=== PATIENT | female | born 1990 | race Two or more races ===

== ENCOUNTER 2021-04-02 15:05 | Emergency (ER) | payer OTHER ==
[~2021-04-02] VITALS: Ht 160 cm; Wt 55.3 kg
[~2021-04-02 15:05] MED LIST: FOLIC ACID0.8 MG PO; PRENATAL1 TAB PO
[2021-04-02] MEDS ORDERED: PEPCID AC20 MG PO (21:24)
[2021-04-02] MEDS ORDERED: CIPRO500 MG PO (21:24)
[2021-04-02] MEDS ORDERED: PROBIOTIC1 EAC2 PO (21:24)
== END 2021-04-02 21:34 | disposition home or self-care (01) ==
LOC: ER 15:05
DX: R19.7 Diarrhea, unspecified (principal); R11.10 Vomiting, unspecified; Z03.818 Encounter for observation for suspected exposure to other biological agents ruled out
CPT/HCPCS: 74177; Q9965

== ENCOUNTER 2021-10-10 11:56 | Emergency (ER) | payer OTHER ==
[~2021-10-10] VITALS: Ht 160 cm; Wt 58.5 kg
[~2021-10-10 11:56] MED LIST changes: +CIPRO500 MG PO; +PEPCID AC20 MG PO; +PROBIOTIC1 EAC2 PO
== END 2021-10-10 16:10 | disposition home or self-care (01) ==
LOC: ER 11:56
DX: N93.9 Abnormal uterine and vaginal bleeding, unspecified (principal)

== ENCOUNTER 2021-10-26 12:03 | Outpatient (CLI) | payer OTHER | END 2021-10-26 13:10 | disposition home or self-care (01) | LOC: PRENATAL 12:03 | PROVIDERS: ATTEND Obstetrics & Gynecology Maternal & Fetal Medicine | DX: O36.80X0 Pregnancy with inconclusive fetal viability, not applicable or unspecified (principal); O30.90 Multiple gestation, unspecified, unspecified trimester; O34.219 Maternal care for unspecified type scar from previous cesarean delivery ==

== ENCOUNTER 2021-12-01 08:27 | Outpatient (CLI) | payer OTHER | END 2021-12-01 09:46 | disposition home or self-care (01) | LOC: PRENATAL 08:27 | PROVIDERS: ATTEND Obstetrics & Gynecology Maternal & Fetal Medicine | DX: O36.80X0 Pregnancy with inconclusive fetal viability, not applicable or unspecified (principal); O34.219 Maternal care for unspecified type scar from previous cesarean delivery; Z3A.13 13 weeks gestation of pregnancy ==

== ENCOUNTER 2022-01-19 08:00 | Outpatient (CLI) | payer OTHER | END 2022-01-19 09:03 | disposition home or self-care (01) | LOC: PRENATAL 08:00 | PROVIDERS: ATTEND Obstetrics & Gynecology Maternal & Fetal Medicine | DX: O35.0XX0 Maternal care for (suspected) central nervous system malformation in fetus, not applicable or unspecified (principal); O35.3XX0 Maternal care for (suspected) damage to fetus from viral disease in mother, not applicable or unspecified; O34.219 Maternal care for unspecified type scar from previous cesarean delivery; Z3A.20 20 weeks gestation of pregnancy ==

== ENCOUNTER 2022-04-13 09:35 | Outpatient (CLI) | payer OTHER | END 2022-04-13 11:15 | disposition home or self-care (01) | LOC: PRENATAL 09:35 | PROVIDERS: ATTEND Obstetrics & Gynecology Maternal & Fetal Medicine | DX: O26.849 Uterine size-date discrepancy, unspecified trimester (principal); O35.0XX0 Maternal care for (suspected) central nervous system malformation in fetus, not applicable or unspecified; O34.219 Maternal care for unspecified type scar from previous cesarean delivery; O43.90 Unspecified placental disorder, unspecified trimester; Z3A.32 32 weeks gestation of pregnancy ==

== ENCOUNTER 2022-05-10 21:53 | Outpatient (CLI) | payer OTHER ==
[2022-05-10] MEDS ORDERED: PRENATAL TABLE1 EAC1 PO (22:24)
== END 2022-05-11 10:52 | disposition home or self-care (01) ==
LOC: OBS/DEL 21:53
PROVIDERS: ATTEND Specialist
DX: O47.03 False labor before 37 completed weeks of gestation, third trimester (principal); Z3A.36 36 weeks gestation of pregnancy; O34.219 Maternal care for unspecified type scar from previous cesarean delivery

== ENCOUNTER 2022-05-25 10:00 | Inpatient (IN) | payer OTHER ==
[~2022-05-25] VITALS: Ht 162.6 cm; Wt 3.2 kg
[~2022-05-25 10:00] MED LIST changes: +PRENATAL TABLE1 EAC1 PO
[2022-05-28] MEDS ORDERED: IBUPROFEN800 MG PO (07:23)
== END 2022-05-28 15:27 | disposition home or self-care (01) | DRG 819 ==
LOC: OB/GYN 11:10 → LDR 11:10 → O/R 13:13 → OB/GYN 15:52
PROVIDERS: ADMIT Specialist; ATTEND Specialist
PROC: 0UB70ZZ Excision of Bilateral Fallopian Tubes, Open Approach (ICD-10-PCS; 2022-05-25)
PROC: 4A1HXCZ Monitoring of Products of Conception, Cardiac Rate, External Approach (ICD-10-PCS; 2022-05-25)
PROC: 4A1HXCZ Monitoring of Products of Conception, Cardiac Rate, External Approach (ICD-10-PCS; principal; 2022-05-25 12:15)
DX: O34.211 Maternal care for low transverse scar from previous cesarean delivery (principal); Z3A.38 38 weeks gestation of pregnancy; Z37.0 Single live birth; Z20.822 Contact with and (suspected) exposure to COVID-19; Z30.2 Encounter for sterilization

== ENCOUNTER 2023-02-03 09:29 | Emergency (ER) | payer OTHER ==
[~2023-02-03] VITALS: Ht 162.6 cm; Wt 63.5 kg
[~2023-02-03 09:29] MED LIST changes: +IBUPROFEN800 MG PO
[2023-02-03] MEDS ORDERED: PEPCID AC20 MG PO (16:23)
[2023-02-03] MEDS ORDERED: INTESTINEX680 M1 PO (16:23)
[2023-02-03] MEDS ORDERED: DICY20TA PO (16:23)
== END 2023-02-03 16:41 | disposition home or self-care (01) ==
LOC: ER 09:29
DX: K52.89 Other specified noninfective gastroenteritis and colitis (principal)

== ENCOUNTER 2024-07-08 17:20 | Emergency (ER) | payer OTHER ==
[~2024-07-08] VITALS: Ht 162.6 cm; Wt 63.5 kg
[~2024-07-08 17:20] MED LIST changes: +DICY20TA PO; +INTESTINEX680 M1 PO
[2024-07-08 18:05] LABS: HEMATOCRIT 35.9 % (36.0-45.00); HEMOGLOBIN 12.4 g/dL (12.0-15.00); MEAN CELL VOLUME 83.4 fL (80.00-100.00); MEAN CORPUSCULAR HEMOGLOBIN 28.7 pg (27.00-32.0); MEAN CORPUSCULAR HGB CONC 34.4 g/dl (32.0-36.0); RED BLOOD COUNT 4.31 M/uL (4.00-6.00); RED CELL DISTRIBUTION WIDTH 13.6 % (11.5-14.5)
[2024-07-08 18:11] LABS: PLATELET COUNT 120 K/uL (150-450)
[2024-07-08 18:21] LABS: ALBUMIN 3.8 gm/dL (3.4-5.0); BILIRUBIN TOTAL 0.42 mg/dL (0.3-1.2); CALCIUM 8.8 mg/dL (8.5-10.1); CREATININE SERUM 0.66 mg/dL (0.55-1.02); GFR 102.52; GLOBULINA 4.2 G/DL (2.4-3.5); POTASSIUM 3.74 mEq/L (3.5-5.1)
[2024-07-08] MEDS ORDERED: OSEL75CA PO (18:32)
[2024-07-08] MEDS ORDERED: GILTUSS COUGH-118 M1 PO (18:32)
== END 2024-07-08 19:49 | disposition home or self-care (01) ==
LOC: ER 17:22
PROVIDERS: Preventive Medicine Public Health & General Preventive Medicine
DX: J10.1 Influenza due to other identified influenza virus with other respiratory manifestations (principal); Z20.822 Contact with and (suspected) exposure to COVID-19

== ENCOUNTER 2024-12-22 22:13 | Emergency (ER) | payer OTHER ==
[~2024-12-22] VITALS: Ht 162.6 cm; Wt 70.3 kg
[~2024-12-22 22:13] MED LIST changes: +GILTUSS COUGH-118 M1 PO; +OSEL75CA PO
[2024-12-23] MEDS ORDERED: KETOROLAC TROMETHAMINE 60 MG VIAL IM STA (03:54)
[2024-12-23] MEDS ORDERED: ORPHENADRINE CITRATE 30 MG/ML AMPUL IM STA (03:54)
[2024-12-23] MEDS ORDERED: DEXAMETHASONE SODIUM PHOSPHATE 4 MG/ML VIAL IM STA (03:55)
[2024-12-23] MEDS ORDERED: ACETAMINOPHEN 500 MG GEL..CAP PO STA (03:55)
== END 2024-12-23 04:24 | disposition home or self-care (01) ==
LOC: ER 22:31
DX: M62.830 Muscle spasm of back (principal); R07.89 Other chest pain